=== PATIENT | female | born 1975 | race Caucasian/White ===

== ENCOUNTER 2018-07-18 17:17 | Emergency (ER) | payer SELFPAY | END 2018-07-18 19:25 | disposition home or self-care (01) | LOC: M ED 17:17 | DX: O99.419 Diseases of the circulatory system complicating pregnancy, unspecified trimester (principal); I80.01 Phlebitis and thrombophlebitis of superficial vessels of right lower extremity; O99.719 Diseases of the skin and subcutaneous tissue complicating pregnancy, unspecified trimester; L03.115 Cellulitis of right lower limb; Z3A.00 Weeks of gestation of pregnancy not specified | CPT/HCPCS: 93971 ==